=== PATIENT | female | born 1975 | race Caucasian/White ===

== ENCOUNTER 2016-08-06 17:07 | Emergency (ER) | payer OTHER ==
[~2016-08-06] VITALS: Ht 157.5 cm; Wt 69.2 kg
[2016-08-06] MEDS ORDERED: JANU50TA4 PO (17:26)
[2016-08-06] MEDS ORDERED: BASA100I SC (17:26)
[2016-08-06] MEDS ORDERED: VENL150C43 PO (17:26)
[2016-08-06] MEDS ORDERED: IBUP-1022 PO (18:08)
[2016-08-06] MEDS ORDERED: CYCL10TA PO (18:08)
[2016-08-06] MEDS ORDERED: KETOROLAC 60 MG/2 ML VIAL (J1885) IM ONE (18:15)
[2016-08-06 18:38] VITALS: BP 152/96
== END 2016-08-06 18:41 | disposition home or self-care (01) ==
LOC: M ED 17:07
DX: M54.12 Radiculopathy, cervical region (principal); E11.9 Type 2 diabetes mellitus without complications; Z79.899 Other long term (current) drug therapy

== ENCOUNTER 2017-10-20 13:52 | Emergency (ER) | payer OTHER ==
[2017-10-20 14:00] LABS: BEDSIDE GLUCOSE 313 MG/DL (70-105)
[2017-10-20 14:31] LABS: BASO % 0.4 % (0.0-1.0); EOS % 0.4 % (0.0-3.0); HEMATOCRIT 44.4 % (36.0-47.0); HEMOGLOBIN 14.9 g/dl (12.0-15.5); IMMATURE GRANULOCYTE % 0.7 % (0-3.0); LYMPH # 0.8 10^3/uL (1.5-4.5); LYMPH % 9.2 % (24.0-44.0); MEAN CORPUSCULAR HEMOGLOBIN 28.3 pg (27.0-33.0); MEAN CORPUSCULAR HGB CONC 33.6 g/dl (32.0-36.5); MEAN CORPUSCULAR VOLUME 84.3 fl (80.0-96.0); MONO # 0.7 10^3/uL (0.0-0.8); MONO % 7.5 % (0.0-5.0); NEUTROPHILS # 7.3 10^3/uL (1.8-7.7); NEUTROPHILS % 81.8 % (36.0-66.0); PLATELET COUNT, AUTOMATED 284 10^3/uL (150-450); RED BLOOD COUNT 5.27 10^6/uL (4.00-5.40); RED CELL DISTRIBUTION WIDTH 12.1 % (11.5-14.5); WHITE BLOOD COUNT 8.9 10^3/uL (4.0-10.0)
[2017-10-20] MEDS: LORazepam 2 MG/ML VIAL (J2060) IV (14:31)
[2017-10-20] MEDS: ONDANSETRON 4MG/2ML VIAL (J2405) IV (14:31)
[2017-10-20] MEDS: NS 1,000 ML IV (14:31)
[2017-10-20 14:46] LABS: CONTROL LINE HCG INT CTR LINE PRESENT; HCG, SERUM QUALITATIVE NEGATIVE (NEGATIVE)
[2017-10-20 15:11] LABS: ALBUMIN 3.9 GM/DL (3.2-5.2); ALBUMIN/GLOBULIN RATIO 0.95 (1.00-1.93); ALKALINE PHOSPHATASE 59 U/L (45-117); ALT/SGPT 19 U/L (12-78); AMYLASE 36 U/L (25-115); ANION GAP 8 MEQ/L (8-16); AST/SGOT 9 U/L (7-37); BILIRUBIN,DIRECT < 0.1 MG/DL (0.0-0.2); BILIRUBIN,TOTAL 0.4 MG/DL (0.2-1.0); BLOOD UREA NITROGEN 14 MG/DL (7-18); CALCIUM LEVEL 8.7 MG/DL (8.5-10.1); CARBON DIOXIDE LEVEL 23 MEQ/L (21-32); CHLORIDE LEVEL 107 MEQ/L (98-107); CK-MB VALUE MASS < 1.0 NG/ML (<3.6); CPK CREATINE PHOSPHOKINASE 106 U/L (26-192); CREATININE FOR GFR 0.72 MG/DL (0.55-1.30); GLOMERULAR FILTRATION RATE > 60.0 (>58); GLUCOSE, FASTING 304 MG/DL (70-100); LIPASE 122 U/L (73-393); MB/CK RELATIVE INDEX 0.94 (< OR =4); POTASSIUM SERUM 4.2 MEQ/L (3.5-5.1); SODIUM LEVEL 138 MEQ/L (136-145); TROPONIN I < 0.02 NG/ML (< 0.10)
[2017-10-20] MEDS: MECLIZINE 25 MG TABLET PO (16:15)
== END 2017-10-20 16:17 | disposition home or self-care (01) ==
LOC: M ED 13:52
DX: H81.10 Benign paroxysmal vertigo, unspecified ear (principal); E11.9 Type 2 diabetes mellitus without complications; Z79.4 Long term (current) use of insulin; Z88.8 Allergy status to other drugs, medicaments and biological substances
CPT/HCPCS: J2405

== ENCOUNTER → 2018-09-11 | Outpatient (REF) | payer OTHER ==
[~2018-09-11] MED LIST: BASA100I SC; CYCL10TA PO; IBUP-1022 PO; JANU50TA4 PO; MECL-86 PO; ONDA4TAB6 PO; VENL150C43 PO
[2018-09-11 16:44] LABS: APPEARANCE, URINE CLEAR (CLEAR); BACTERIA, URINE AUTO NEGATIVE (NEGATIVE); BILIRUBIN, URINE AUTO NEGATIVE (NEGATIVE); BLOOD, URINE BLOOD 2+ (NEGATIVE); COLOR, URINE YELLOW (YELLOW); GLUCOSE, URINE (UA) AUTO 3+ mg/dL (NEGATIVE); KETONE, URINE AUTO 1+ mg/dL (NEGATIVE); LEUKOCYTE ESTERASE, URINE AUTO TRACE (NEGATIVE); MUCUS, URINE SMALL (NEGATIVE); NITRITE, URINE AUTO NEGATIVE (NEGATIVE); PROTEIN, URINE AUTO NEGATIVE (NEGATIVE); RBC, URINE AUTO 24 /HPF (0-3); SPECIFIC GRAVITY URINE AUTO 1.033 (1.002-1.035); SQUAMOUS EPITHELIAL CELL UR AU 3 /HPF (0-6); UROBILINOGEN, URINE AUTO 0.2 mg/dL (0.0-2.0); WBC, URINE AUTO 25 /HPF (0-3)
[2018-09-11 17:08] LABS: ALBUMIN 3.8 GM/DL (3.2-5.2); ALT/SGPT 23 U/L (12-78); BILIRUBIN,TOTAL 0.4 MG/DL (0.2-1.0); BLOOD UREA NITROGEN 15 MG/DL (7-18); CALCIUM LEVEL 8.7 MG/DL (8.5-10.1); CARBON DIOXIDE LEVEL 27 MEQ/L (21-32); CHLORIDE LEVEL 104 MEQ/L (98-107); CHOLESTEROL LEVEL 277 MG/DL (<200); CHOLESTEROL RISK RATIO 8.935 (<5); CREATININE FOR GFR 0.71 MG/DL (0.55-1.30); GLOMERULAR FILTRATION RATE > 60.0 (>58); GLUCOSE, FASTING 274 MG/DL (70-100); HDL CHOLESTEROL 31 MG/DL (>40); NON-HDL-C 246 MG/DL; POTASSIUM SERUM 4.2 MEQ/L (3.5-5.1); SODIUM LEVEL 139 MEQ/L (136-145); TRIGLYCERIDES LEVEL 802 MG/DL (<150)
[2018-09-11 17:11] LABS: CREATININE, URINE 51.2 MG/DL; MALB URINE SIEMENS 42.5 MG/L
== END ==
LOC: M SFHCPLAZ 14:12
PROVIDERS: ATTEND Nurse Practitioner Family
DX: Z00.00 Encounter for general adult medical examination without abnormal findings (principal); E11.9 Type 2 diabetes mellitus without complications; Z13.220 Encounter for screening for lipoid disorders; F41.8 Other specified anxiety disorders

== ENCOUNTER → 2018-09-12 | Outpatient (CLI) | payer OTHER ==
--- NOTE | 2018-09-13 02:52 | REP ---
Clinical: Right knee pain. Technique: AP, lateral, bilateral oblique and sunrise views of the right knee. Findings: Lateral and sunrise views demonstrate osteophyte formation along the patellar margins with subtle posterior sclerosis and anterior fraying suggesting mild degenerative changes and patellar tendinopathy. Tibiofemoral joint demonstrates age-related changes. There is no evidence for acute fracture dislocation. No effusion. 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 Electronically Signed by Gonzalo Chinchilla MD 09/13/2018 02:44 A
== END ==
LOC: M RAD 14:40
PROVIDERS: ATTEND Nurse Practitioner Family
DX: M17.11 Unilateral primary osteoarthritis, right knee (principal); M25.561 Pain in right knee

== ENCOUNTER → 2019-06-19 | Outpatient (CLI) | payer OTHER ==
[~2019-06-19] MED LIST changes: +CYCL-707 PO; -CYCL10TA PO
== END ==
LOC: M LABSMTC 12:45
PROVIDERS: ATTEND Family Medicine
DX: Z11.59 Encounter for screening for other viral diseases (principal)
CPT/HCPCS: C8903; U0003

== ENCOUNTER → 2021-07-15 | Outpatient (CLI) | payer OTHER ==
[2021-07-15 13:28] LABS: BASO # 0.1 10^3/uL (0.0-0.2); BASO % 0.9 % (0.0-1.0); EOS # 0.1 10^3/uL (0.0-0.5); EOS % 0.7 % (0.0-3.0); HEMATOCRIT 48.5 % (36.0-47.0); LYMPH # 1.3 10^3/uL (1.5-5.0); LYMPH % 12.7 % (24.0-44.0); MEAN CORPUSCULAR HEMOGLOBIN 29.1 pg (27.0-33.0); MEAN CORPUSCULAR VOLUME 88.3 fl (80.0-96.0); MONO # 0.7 10^3/uL (0.0-0.8); NEUTROPHILS # 7.7 10^3/uL (1.5-8.5); NEUTROPHILS % 77.7 % (36.0-66.0); PLATELET COUNT, AUTOMATED 338 10^3/uL (150-450); RED BLOOD COUNT 5.49 10^6/uL (4.00-5.40); WHITE BLOOD COUNT 9.9 10^3/uL (4.0-10.0)
[2021-07-15 14:11] LABS: CREATININE, URINE 56.5 MG/DL; MALB URINE SIEMENS 68.3 MG/L; MAU/CREAT RATIO 120.8 MCG/MG (0.0-30.0)
[2021-07-15 14:20] LABS: ALBUMIN 3.7 GM/DL (3.2-5.2); ALT/SGPT 26 U/L (12-78); BILIRUBIN,TOTAL 0.5 MG/DL (0.2-1.0); BLOOD UREA NITROGEN 14 MG/DL (7-18); CALCIUM LEVEL 8.8 MG/DL (8.5-10.1); CARBON DIOXIDE LEVEL 20 MEQ/L (21-32); CHLORIDE LEVEL 104 MEQ/L (98-107); CHOLESTEROL LEVEL 293 MG/DL (<200); CHOLESTEROL RISK RATIO 8.878 (<5); CREATININE FOR GFR 0.87 MG/DL (0.55-1.30); FREE T4 0.91 NG/DL (0.76-1.46); GLOMERULAR FILTRATION RATE > 60.0 (>58); GLUCOSE, FASTING 258 MG/DL (70-100); HDL CHOLESTEROL 33 MG/DL (>40); NON-HDL-C 260 MG/DL; POTASSIUM SERUM 4.4 MEQ/L (3.5-5.1); SODIUM LEVEL 136 MEQ/L (136-145); THYROID STIMULATING HORMONE 0.921 uIU/ML (0.358-3.740); TOTAL 25(OH) VITAMIN D 15.2 NG/ML (30.0-100.0); TOTAL PROTEIN 8.2 GM/DL (6.4-8.2); TRIGLYCERIDES LEVEL 593 MG/DL (<150)
[2021-07-15 14:40] LABS: HEMOGLOBIN A1c 12.5 %
== END ==
LOC: M PLALAB 10:59
PROVIDERS: ATTEND Nurse Practitioner Family
DX: E11.9 Type 2 diabetes mellitus without complications (principal); E78.2 Mixed hyperlipidemia; I11.9 Hypertensive heart disease without heart failure

== ENCOUNTER 2021-08-09 13:50 | Inpatient (IN) | payer OTHER ==
[~2021-08-09] VITALS: Ht 157.5 cm; Wt 64.1 kg
[2021-08-09 15:07] LABS: HEMATOCRIT 40.4 % (36.0-47.0); HEMOGLOBIN 13.3 g/dl (12.0-15.5); MEAN CORPUSCULAR HEMOGLOBIN 29.4 pg (27.0-33.0); MEAN CORPUSCULAR HGB CONC 32.9 g/dl (32.0-36.5); MEAN CORPUSCULAR VOLUME 89.2 fl (80.0-96.0); PLATELET COUNT, AUTOMATED 414 10^3/uL (150-450); RED BLOOD COUNT 4.53 10^6/uL (4.00-5.40); WHITE BLOOD COUNT 14.8 10^3/uL (4.0-10.0)
[2021-08-09 15:27] LABS: HCG, SERUM QUALITATIVE NEGATIVE (NEGATIVE)
[2021-08-09 15:31] LABS: ERYTHROCYTE SEDIMENTATION RATE 77 mm/hr (0-20)
[2021-08-09 15:38] LABS: BLOOD UREA NITROGEN 13 MG/DL (7-18); CALCIUM LEVEL 9.1 MG/DL (8.5-10.1); CARBON DIOXIDE LEVEL 26 MEQ/L (21-32); CHLORIDE LEVEL 100 MEQ/L (98-107); CREATININE FOR GFR 0.75 MG/DL (0.55-1.30); GLOMERULAR FILTRATION RATE > 60.0 (>58); GLUCOSE, FASTING 266 MG/DL (70-100); SODIUM LEVEL 135 MEQ/L (136-145)
[2021-08-09] MEDS ORDERED: ONDANSETRON 4MG 2ML VIAL IV ONE (17:40)
[2021-08-09] MEDS ORDERED: VANCOMYCIN HCL 1,250 MG in NS 250 ML IV ONE (17:40)
[2021-08-09] MEDS ORDERED: MORPHINE 4 MG/ML 1ML VIAL/SYRINGE IV PRN (17:40)
[2021-08-09] MEDS ORDERED: ISOVUE-370 76% 100ML VIAL As Ordered ONE (17:50)
[2021-08-09] MEDS ORDERED: VANCOMYCIN HCL 750 MG, VIAL MATE ADAPTER 1 EACH in NS 250 ML IV ONE (18:00)
[2021-08-09] MEDS ORDERED: VANCOMYCIN HCL 500 MG in D5W MINI-BAG PLUS 100 ML IV ONE (18:00)
[2021-08-09 18:29] LABS: BASO # 0.1 10^3/uL (0.0-0.2); BASO % 0.5 % (0.0-1.0); EOS # 0.1 10^3/uL (0.0-0.5); EOS % 0.5 % (0.0-3.0); LYMPH # 0.5 10^3/uL (1.5-5.0); LYMPH % 3.7 % (24.0-44.0); MONO # 1.2 10^3/uL (0.0-0.8); MONO % 7.9 % (2.0-8.0); NEUTROPHILS # 12.6 10^3/uL (1.5-8.5); NEUTROPHILS % 86.3 % (36.0-66.0)
[2021-08-09 18:39] LABS: RSV AMPLIFICATION NEGATIVE (NEGATIVE)
[2021-08-09] MEDS ORDERED: FLUO40CA PO (18:43)
[2021-08-09] MEDS ORDERED: ATOR80TA59 PO (18:43)
[2021-08-09] MEDS ORDERED: OZEM2INJ SC (18:43)
[2021-08-09] MEDS ORDERED: BUSP5TA PO (18:43)
[2021-08-09] MEDS ORDERED: LISI10TA22 PO (18:43)
[2021-08-09] MEDS ORDERED: OXYC1TAB23 PO (18:43)
[2021-08-09] MEDS ORDERED: MOM 30ML SUSPENSION UDC PO PRN (19:20)
[2021-08-09] MEDS ORDERED: GLUCOSE 4GM CHEW TABLET PO PRN (19:30)
[2021-08-09] MEDS ORDERED: DEXTROSE 50% 50 ML SYRINGE IV PRN (19:30)
[2021-08-09] MEDS ORDERED: GLUCAGON INJ 1MG VIAL SC PRN (19:30)
[2021-08-09] MEDS ORDERED: HOME MED LIST COMPLETE! XX SCH (19:40)
[2021-08-09] MEDS: busPIRone 5 MG TAB PO SCH ×2 (21:00→23:38)
[2021-08-09] MEDS: ATORVASTATIN 20 MG TAB PO SCH ×2 (21:00→23:40)
[2021-08-09] MEDS: HEPARIN SOD (PORCINE) 5000UNITS/ML 1ML VIAL/SYRINGE SC SCH ×2 (22:00→23:38)
[2021-08-09] MEDS: MORPHINE 2 MG/ML 1ML VIAL IV PRN (22:52)
[2021-08-09] MEDS ORDERED: CALCIUM CARBONATE 500 MG CHEW U/D PO PRN (23:05)
[2021-08-09] MEDS: NS 1,000 ML IV SCH (23:40)
[2021-08-09] MEDS: PIPERACILLIN/TAZOBACTAM SOD 3.375 GM in D5W MINI-BAG PLUS 50 ML IV SCH (23:41)
[2021-08-10] VITALS (9 sets, daily range): BP systolic 106–134; BP diastolic 70–88
[2021-08-10] MEDS ORDERED: GI COCKTAIL 50ML BTL(HYOSCYAMINE/MAALOX/LIDOCAINE VISCOUS)(1:3:1) PO ONE
[2021-08-10] MEDS: PIPERACILLIN/TAZOBACTAM SOD 3.375 GM in D5W MINI-BAG PLUS 50 ML IV SCH ×4 (02:02→21:06)
[2021-08-10] MEDS: MORPHINE 2 MG/ML 1ML VIAL IV PRN (04:17)
[2021-08-10] MEDS: NS 1,000 ML IV SCH ×2 (05:35→13:03)
[2021-08-10] MEDS: HEPARIN SOD (PORCINE) 5000UNITS/ML 1ML VIAL/SYRINGE SC SCH ×3 (06:13→23:26)
[2021-08-10] MEDS: VANCOMYCIN HCL 1,000 MG, VIAL MATE ADAPTER 1 EACH in NS 250 ML IV SCH ×2 (06:13→18:10)
[2021-08-10 06:14] LABS: HEMOGLOBIN 11.5 g/dl (12.0-15.5); MEAN CORPUSCULAR HEMOGLOBIN 29.2 pg (27.0-33.0); MEAN CORPUSCULAR HGB CONC 32.9 g/dl (32.0-36.5); MEAN CORPUSCULAR VOLUME 88.8 fl (80.0-96.0); PLATELET COUNT, AUTOMATED 349 10^3/uL (150-450); RED BLOOD COUNT 3.94 10^6/uL (4.00-5.40); WHITE BLOOD COUNT 13.1 10^3/uL (4.0-10.0)
[2021-08-10 06:36] LABS: ALBUMIN 1.9 GM/DL (3.2-5.2); ALT/SGPT 19 U/L (12-78); BILIRUBIN,TOTAL 0.6 MG/DL (0.2-1.0); BLOOD UREA NITROGEN 9 MG/DL (7-18); CALCIUM LEVEL 8.5 MG/DL (8.5-10.1); CARBON DIOXIDE LEVEL 23 MEQ/L (21-32); CHLORIDE LEVEL 103 MEQ/L (98-107); CREATININE FOR GFR 0.62 MG/DL (0.55-1.30); GLOMERULAR FILTRATION RATE > 60.0 (>58); GLUCOSE, FASTING 294 MG/DL (70-100); SODIUM LEVEL 136 MEQ/L (136-145); TOTAL PROTEIN 5.5 GM/DL (6.4-8.2)
[2021-08-10] MEDS: INSULIN LISPRO (NovoLOG) PER UNIT SC SCH ×4 (07:43→18:10)
[2021-08-10] MEDS ORDERED: BUPIVACAINE LIPOSOME/PF 1.3% 20ML VIAL (13.3MG/ML)(EXPAREL) As Ordered ONE (08:27)
[2021-08-10] MEDS ORDERED: BUPIVACAINE HCL 0.25% 10ML VIAL As Ordered ONE (08:27)
[2021-08-10] MEDS: FLUoxetine 20MG CAP PO SCH ×2 (09:00→13:02)
[2021-08-10] MEDS: LEVEMIR (INSULIN DETEMIR) 1 UNITS/0.01ML SC SCH ×2 (09:00→13:02)
[2021-08-10] MEDS: busPIRone 5 MG TAB PO SCH ×2 (09:00→21:07)
[2021-08-10] MEDS ORDERED: propofoL 500 MG/50 ML VIAL As Ordered ONE (09:24)
[2021-08-10] MEDS ORDERED: dexameTHASONE 4 MG/ML 1ML VIAL (J1100 PER 1MG) As Ordered ONE (09:24)
[2021-08-10] MEDS ORDERED: MIDAZOLAM INJ 2MG/2ML VIAL (J2250 PER 1MG) As Ordered ONE (09:24)
[2021-08-10] MEDS ORDERED: fentaNYL 100 MCG/2 ML INJECTION As Ordered ONE (09:24)
[2021-08-10] MEDS ORDERED: ONDANSETRON 4MG 2ML VIAL As Ordered ONE (09:25)
[2021-08-10] MEDS ORDERED: LR 1,000 ML IV SCH (10:55)
[2021-08-10] MEDS ORDERED: oxyCODONE 5MG TAB PO PRN (10:55)
[2021-08-10] MEDS ORDERED: fentaNYL 100 MCG/2 ML INJECTION IV PRN (10:55)
[2021-08-10] MEDS ORDERED: ONDANSETRON 4MG 2ML VIAL IV PRN (10:55)
[2021-08-10] MEDS ORDERED: MORPHINE 2 MG/ML 1ML VIAL IV PRN (10:55)
[2021-08-10] MEDS ORDERED: INSULIN LISPRO (NovoLOG) PER UNIT SC PRN (11:00)
[2021-08-10] MEDS: PERCOCET 5MG/325MG TAB PO PRN ×2 (15:29→23:41)
[2021-08-10] MEDS: ATORVASTATIN 20 MG TAB PO SCH (21:07)
[2021-08-11] MEDS: INSULIN LISPRO (NovoLOG) PER UNIT SC SCH ×5 (00:24→21:00)
[2021-08-11 01:15] VITALS: BP 107/73
[2021-08-11] MEDS: NS 1,000 ML IV SCH ×3 (03:24→19:53)
[2021-08-11] MEDS: PIPERACILLIN/TAZOBACTAM SOD 3.375 GM in D5W MINI-BAG PLUS 50 ML IV SCH ×4 (03:24→19:51)
[2021-08-11 05:13] VITALS: BP 103/70
[2021-08-11 05:21] LABS: HEMATOCRIT 33.9 % (36.0-47.0); HEMOGLOBIN 10.9 g/dl (12.0-15.5); MEAN CORPUSCULAR HGB CONC 32.2 g/dl (32.0-36.5); MEAN CORPUSCULAR VOLUME 90.2 fl (80.0-96.0); PLATELET COUNT, AUTOMATED 313 10^3/uL (150-450); RED BLOOD COUNT 3.76 10^6/uL (4.00-5.40); WHITE BLOOD COUNT 13.3 10^3/uL (4.0-10.0)
[2021-08-11 06:06] LABS: ALBUMIN 1.6 GM/DL (3.2-5.2); ALT/SGPT 27 U/L (12-78); BILIRUBIN,TOTAL 0.5 MG/DL (0.2-1.0); BLOOD UREA NITROGEN 16 MG/DL (7-18); CALCIUM LEVEL 8.3 MG/DL (8.5-10.1); CARBON DIOXIDE LEVEL 25 MEQ/L (21-32); CHLORIDE LEVEL 108 MEQ/L (98-107); CREATININE FOR GFR 0.53 MG/DL (0.55-1.30); GLOMERULAR FILTRATION RATE > 60.0 (>58); GLUCOSE, FASTING 246 MG/DL (70-100); POTASSIUM SERUM 4.3 MEQ/L (3.5-5.1); SODIUM LEVEL 139 MEQ/L (136-145); TOTAL PROTEIN 4.9 GM/DL (6.4-8.2)
[2021-08-11] MEDS: VANCOMYCIN HCL 1,000 MG, VIAL MATE ADAPTER 1 EACH in NS 250 ML IV SCH ×3 (06:22→22:06)
[2021-08-11] MEDS: HEPARIN SOD (PORCINE) 5000UNITS/ML 1ML VIAL/SYRINGE SC SCH ×3 (06:22→22:06)
[2021-08-11] MEDS: LEVEMIR (INSULIN DETEMIR) 1 UNITS/0.01ML SC SCH (08:51)
[2021-08-11] MEDS: PERCOCET 5MG/325MG TAB PO PRN ×3 (08:52→20:18)
[2021-08-11 08:53] VITALS: BP 125/82
[2021-08-11] MEDS: busPIRone 5 MG TAB PO SCH ×2 (08:53→19:51)
[2021-08-11] MEDS: FLUoxetine 20MG CAP PO SCH (08:53)
[2021-08-11] MEDS ORDERED: LEVEMIR (INSULIN DETEMIR) 1 UNITS/0.01ML SC ONE (09:20)
[2021-08-11 14:00] VITALS: BP 102/66
[2021-08-11] MEDS: ATORVASTATIN 20 MG TAB PO SCH (19:50)
[2021-08-11 22:00] VITALS: BP 103/65
[2021-08-12] MEDS: PERCOCET 5MG/325MG TAB PO PRN ×2 (02:40→09:16)
[2021-08-12] MEDS: PIPERACILLIN/TAZOBACTAM SOD 3.375 GM in D5W MINI-BAG PLUS 50 ML IV SCH ×4 (02:42→20:46)
[2021-08-12 05:22] LABS: HEMATOCRIT 30.2 % (36.0-47.0); HEMOGLOBIN 9.9 g/dl (12.0-15.5); MEAN CORPUSCULAR HEMOGLOBIN 29.1 pg (27.0-33.0); MEAN CORPUSCULAR HGB CONC 32.8 g/dl (32.0-36.5); MEAN CORPUSCULAR VOLUME 88.8 fl (80.0-96.0); PLATELET COUNT, AUTOMATED 340 10^3/uL (150-450); WHITE BLOOD COUNT 12.4 10^3/uL (4.0-10.0)
[2021-08-12] MEDS: VANCOMYCIN HCL 1,000 MG, VIAL MATE ADAPTER 1 EACH in NS 250 ML IV SCH ×3 (05:54→22:02)
[2021-08-12] MEDS: HEPARIN SOD (PORCINE) 5000UNITS/ML 1ML VIAL/SYRINGE SC SCH ×3 (05:54→20:42)
[2021-08-12 05:56] LABS: ALBUMIN 1.5 GM/DL (3.2-5.2); ALT/SGPT 23 U/L (12-78); BILIRUBIN,TOTAL 0.3 MG/DL (0.2-1.0); BLOOD UREA NITROGEN 17 MG/DL (7-18); CALCIUM LEVEL 7.3 MG/DL (8.5-10.1); CARBON DIOXIDE LEVEL 23 MEQ/L (21-32); CHLORIDE LEVEL 108 MEQ/L (98-107); CREATININE FOR GFR 0.48 MG/DL (0.55-1.30); GLOMERULAR FILTRATION RATE > 60.0 (>58); GLUCOSE, FASTING 279 MG/DL (70-100); POTASSIUM SERUM 3.7 MEQ/L (3.5-5.1); SODIUM LEVEL 139 MEQ/L (136-145); TOTAL PROTEIN 4.8 GM/DL (6.4-8.2)
[2021-08-12 06:00] VITALS: BP 100/61
[2021-08-12] MEDS: NS 1,000 ML IV SCH ×2 (07:35→17:30)
[2021-08-12] MEDS ORDERED: LEVEMIR (INSULIN DETEMIR) 1 UNITS/0.01ML SC SCH (09:00)
[2021-08-12] MEDS: FLUoxetine 20MG CAP PO SCH (09:15)
[2021-08-12] MEDS: busPIRone 5 MG TAB PO SCH ×2 (09:15→20:42)
[2021-08-12] MEDS: INSULIN LISPRO (NovoLOG) PER UNIT SC SCH ×4 (09:16→21:00)
[2021-08-12] MEDS ORDERED: KETOROLAC 30 MG/ML 1ML VIAL IV ONE (09:20)
[2021-08-12] MEDS ORDERED: PERCOCET 5MG/325MG TAB PO ONE (09:20)
[2021-08-12] MEDS: LEVEMIR (INSULIN DETEMIR) 1 UNITS/0.01ML SC SCH (09:25)
[2021-08-12 14:00] VITALS: BP 104/58
[2021-08-12] MEDS: KETOROLAC 30 MG/ML 1ML VIAL IV SCH ×2 (17:29→22:04)
[2021-08-12 20:00] VITALS: BP 105/57
[2021-08-12] MEDS: ATORVASTATIN 20 MG TAB PO SCH (20:42)
[2021-08-12 22:00] VITALS: BP 105/57
[2021-08-13] MEDS: PIPERACILLIN/TAZOBACTAM SOD 3.375 GM in D5W MINI-BAG PLUS 50 ML IV SCH ×4 (02:07→21:30)
[2021-08-13] MEDS: KETOROLAC 30 MG/ML 1ML VIAL IV SCH ×4 (04:18→22:52)
[2021-08-13] MEDS: HEPARIN SOD (PORCINE) 5000UNITS/ML 1ML VIAL/SYRINGE SC SCH ×3 (05:18→21:30)
[2021-08-13] MEDS: VANCOMYCIN HCL 1,000 MG, VIAL MATE ADAPTER 1 EACH in NS 250 ML IV SCH (05:18)
[2021-08-13 06:00] VITALS: BP 118/75
[2021-08-13] MEDS: NS 1,000 ML IV SCH ×2 (06:16→15:35)
[2021-08-13] MEDS: busPIRone 5 MG TAB PO SCH ×2 (09:11→21:30)
[2021-08-13] MEDS: LEVEMIR (INSULIN DETEMIR) 1 UNITS/0.01ML SC SCH (09:11)
[2021-08-13] MEDS: FLUoxetine 20MG CAP PO SCH (09:11)
[2021-08-13] MEDS: INSULIN LISPRO (NovoLOG) PER UNIT SC SCH ×4 (09:12→21:00)
[2021-08-13] MEDS ORDERED: LEVEMIR (INSULIN DETEMIR) 1 UNITS/0.01ML SC ONE (13:00)
[2021-08-13 13:17] LABS: BASO # 0.1 10^3/uL (0.0-0.2); BASO % 0.5 % (0.0-1.0); EOS # 0.1 10^3/uL (0.0-0.5); EOS % 1.1 % (0.0-3.0); HEMATOCRIT 32.2 % (36.0-47.0); HEMOGLOBIN 10.4 g/dl (12.0-15.5); LYMPH # 0.5 10^3/uL (1.5-5.0); LYMPH % 4.7 % (24.0-44.0); MEAN CORPUSCULAR HEMOGLOBIN 28.5 pg (27.0-33.0); MEAN CORPUSCULAR HGB CONC 32.3 g/dl (32.0-36.5); MEAN CORPUSCULAR VOLUME 88.2 fl (80.0-96.0); MONO # 0.7 10^3/uL (0.0-0.8); MONO % 6.2 % (2.0-8.0); NEUTROPHILS # 8.8 10^3/uL (1.5-8.5); NEUTROPHILS % 83.6 % (36.0-66.0); PLATELET COUNT, AUTOMATED 367 10^3/uL (150-450); RED BLOOD COUNT 3.65 10^6/uL (4.00-5.40); WHITE BLOOD COUNT 10.5 10^3/uL (4.0-10.0)
[2021-08-13 14:00] VITALS: BP 130/70
[2021-08-13] MEDS: VANCOMYCIN HCL 750 MG, VIAL MATE ADAPTER 1 EACH in NS 250 ML IV SCH ×2 (14:06→22:50)
[2021-08-13] MEDS ORDERED: LACTOBACILLUS ACIDOPHILUS CAP (BACID) PO SCH (21:00)
[2021-08-13] MEDS: ATORVASTATIN 20 MG TAB PO SCH (21:30)
[2021-08-13 22:00] VITALS: BP 141/78
[2021-08-14] MEDS: PIPERACILLIN/TAZOBACTAM SOD 3.375 GM in D5W MINI-BAG PLUS 50 ML IV SCH ×2 (03:00→08:21)
[2021-08-14] MEDS: NS 1,000 ML IV SCH ×2 (05:59→09:11)
[2021-08-14] MEDS: HEPARIN SOD (PORCINE) 5000UNITS/ML 1ML VIAL/SYRINGE SC SCH ×2 (05:59→12:13)
[2021-08-14 06:00] VITALS: BP 139/77
[2021-08-14] MEDS: VANCOMYCIN HCL 750 MG, VIAL MATE ADAPTER 1 EACH in NS 250 ML IV SCH (06:00)
[2021-08-14 06:50] LABS: HEMATOCRIT 29.6 % (36.0-47.0); HEMOGLOBIN 9.6 g/dl (12.0-15.5); MEAN CORPUSCULAR HGB CONC 32.4 g/dl (32.0-36.5); MEAN CORPUSCULAR VOLUME 89.4 fl (80.0-96.0); PLATELET COUNT, AUTOMATED 347 10^3/uL (150-450); RED BLOOD COUNT 3.31 10^6/uL (4.00-5.40); WHITE BLOOD COUNT 10.7 10^3/uL (4.0-10.0)
[2021-08-14 07:14] LABS: BLOOD UREA NITROGEN 11 MG/DL (7-18); CALCIUM LEVEL 7.9 MG/DL (8.5-10.1); CARBON DIOXIDE LEVEL 27 MEQ/L (21-32); CHLORIDE LEVEL 110 MEQ/L (98-107); CREATININE FOR GFR 0.87 MG/DL (0.55-1.30); GLOMERULAR FILTRATION RATE > 60.0 (>58); GLUCOSE, FASTING 185 MG/DL (70-100); POTASSIUM SERUM 3.4 MEQ/L (3.5-5.1); SODIUM LEVEL 143 MEQ/L (136-145)
[2021-08-14 07:38] LABS: EOSINOPHILS 1 % (0-3); LYMPHOCYTES 6 % (16-44); MONOCYTES 8 % (0-5); NEUTROPHILS 83 % (28-66); PLATELET ESTIMATE NORMAL (NORMAL)
[2021-08-14] MEDS ORDERED: LACTOBACILLUS ACIDOPHILUS CAP (BACID) PO SCH (08:00)
[2021-08-14] MEDS: KETOROLAC 30 MG/ML 1ML VIAL IV SCH ×2 (08:18→12:10)
[2021-08-14] MEDS: INSULIN LISPRO (NovoLOG) PER UNIT SC SCH ×2 (08:20→12:12)
[2021-08-14] MEDS: FLUoxetine 20MG CAP PO SCH (08:21)
[2021-08-14] MEDS: busPIRone 5 MG TAB PO SCH (08:21)
[2021-08-14] MEDS ORDERED: LEVEMIR (INSULIN DETEMIR) 1 UNITS/0.01ML SC SCH (09:00)
[2021-08-14] MEDS ORDERED: CLIN150C17 PO ×2 (13:15→13:16)
[2021-08-14] MEDS ORDERED: IBUP-1114 PO (13:15)
[2021-08-25] MEDS ORDERED: LEVO1TAB40 PO (15:49)
== END 2021-08-14 13:57 | disposition home or self-care (01) | DRG 710 ==
LOC: M ED 13:50 → M ED INP 19:20 → ENRESERVDT 20:37 → ENRESERVTM 20:37 → M MSPAV 22:30
PROVIDERS: ADMIT Family Medicine; ATTEND Internal Medicine
PROC: 0D9P0ZZ Drainage of Rectum, Open Approach (ICD-10-PCS; principal; 2021-08-10 08:30)
DX: A41.9 Sepsis, unspecified organism (principal); I10 Essential (primary) hypertension; E11.9 Type 2 diabetes mellitus without complications; F32.A Depression, unspecified; L02.31 Cutaneous abscess of buttock; N76.89 Other specified inflammation of vagina and vulva; K60.3 Anal fistula; F41.9 Anxiety disorder, unspecified; Z91.11 Patient's noncompliance with dietary regimen; Z79.4 Long term (current) use of insulin; Z79.899 Other long term (current) drug therapy

== ENCOUNTER 2021-08-19 14:41 | Inpatient (IN) | payer OTHER ==
[~2021-08-19] VITALS: Ht 157.5 cm; Wt 64.2 kg
[~2021-08-19 14:41] MED LIST changes: +ATOR80TA59 PO; +BUSP5TA PO; +CLIN150C17 PO; +FLUO40CA PO; +IBUP-1114 PO; +LISI10TA22 PO; +OXYC1TAB23 PO; +OZEM2INJ SC
[2021-08-19] MEDS ORDERED: ONDANSETRON 4MG 2ML VIAL IV PRN (14:45)
[2021-08-19] MEDS ORDERED: VANCOMYCIN HCL 1,000 MG, VIAL MATE ADAPTER 1 EACH in NS 250 ML IV SCH (14:45)
[2021-08-19 15:05] VITALS: BP 138/82
[2021-08-19] MEDS ORDERED: UNRESOLVED CLARIFICATION ENTRY XX STA (15:29)
[2021-08-19 16:00] VITALS: BP 137/84
[2021-08-19 16:12] LABS: BASO # 0.1 10^3/uL (0.0-0.2); BASO % 0.4 % (0.0-1.0); EOS # 0.2 10^3/uL (0.0-0.5); EOS % 1.3 % (0.0-3.0); HEMATOCRIT 33.2 % (36.0-47.0); HEMOGLOBIN 11.1 g/dl (12.0-15.5); LYMPH # 0.9 10^3/uL (1.5-5.0); LYMPH % 5.6 % (24.0-44.0); MEAN CORPUSCULAR HEMOGLOBIN 29.4 pg (27.0-33.0); MEAN CORPUSCULAR HGB CONC 33.4 g/dl (32.0-36.5); MEAN CORPUSCULAR VOLUME 88.1 fl (80.0-96.0); MONO # 1.3 10^3/uL (0.0-0.8); MONO % 7.8 % (2.0-8.0); NEUTROPHILS # 13.5 10^3/uL (1.5-8.5); NEUTROPHILS % 83.3 % (36.0-66.0); PLATELET COUNT, AUTOMATED 551 10^3/uL (150-450); RED BLOOD COUNT 3.77 10^6/uL (4.00-5.40); WHITE BLOOD COUNT 16.2 10^3/uL (4.0-10.0)
[2021-08-19] MEDS ORDERED: CLIN150C17 PO (16:23)
[2021-08-19] MEDS ORDERED: IBUP1TAB5 PO (16:23)
[2021-08-19] MEDS ORDERED: BASA100I SC (16:23)
[2021-08-19] MEDS ORDERED: BACITAB PO (16:23)
[2021-08-19] MEDS ORDERED: OMEP-173 PO (16:23)
[2021-08-19] MEDS ORDERED: HOME MED LIST COMPLETE! XX SCH (16:25)
[2021-08-19 16:31] LABS: ALBUMIN 2.5 GM/DL (3.2-5.2); ALT/SGPT 17 U/L (12-78); BILIRUBIN,TOTAL 0.2 MG/DL (0.2-1.0); BLOOD UREA NITROGEN 20 MG/DL (7-18); CALCIUM LEVEL 9.1 MG/DL (8.5-10.1); CARBON DIOXIDE LEVEL 28 MEQ/L (21-32); CHLORIDE LEVEL 102 MEQ/L (98-107); CREATININE FOR GFR 1.03 MG/DL (0.55-1.30); GLOMERULAR FILTRATION RATE > 60.0 (>58); GLUCOSE, FASTING 234 MG/DL (70-100); POTASSIUM SERUM 3.6 MEQ/L (3.5-5.1); SODIUM LEVEL 138 MEQ/L (136-145); TOTAL PROTEIN 7.1 GM/DL (6.4-8.2)
[2021-08-19] MEDS: INSULIN LISPRO (NovoLOG) PER UNIT SC SCH ×2 (17:31→19:52)
[2021-08-19 18:00] VITALS: BP 133/85
[2021-08-19] MEDS ORDERED: VANCOMYCIN HCL 750 MG, VIAL MATE ADAPTER 1 EACH in D5W 250 ML IV ONE (19:00)
[2021-08-19] MEDS ORDERED: VANCOMYCIN HCL 500 MG in D5W MINI-BAG PLUS 100 ML IV ONE (20:00)
[2021-08-19 22:00] VITALS: BP 122/71
[2021-08-19] MEDS: oxyCODONE 5MG TAB PO PRN (22:12)
[2021-08-20] VITALS (8 sets, daily range): BP systolic 107–140; BP diastolic 53–80
[2021-08-20] MEDS: oxyCODONE 5MG TAB PO PRN (05:14)
[2021-08-20] MEDS ORDERED: VANCOMYCIN HCL 750 MG, VIAL MATE ADAPTER 1 EACH in D5W 250 ML IV SCH ×2 (07:00→21:00)
[2021-08-20 08:33] LABS: BLOOD UREA NITROGEN 16 MG/DL (7-18); CALCIUM LEVEL 8.7 MG/DL (8.5-10.1); CARBON DIOXIDE LEVEL 26 MEQ/L (21-32); CHLORIDE LEVEL 104 MEQ/L (98-107); GLOMERULAR FILTRATION RATE > 60.0 (>58); GLUCOSE, FASTING 307 MG/DL (70-100); POTASSIUM SERUM 4.4 MEQ/L (3.5-5.1); SODIUM LEVEL 137 MEQ/L (136-145)
[2021-08-20] MEDS: INSULIN LISPRO (NovoLOG) PER UNIT SC SCH ×4 (08:50→21:00)
[2021-08-20] MEDS: ATORVASTATIN 20 MG TAB PO SCH (08:51)
[2021-08-20] MEDS: busPIRone 5 MG TAB PO SCH (08:51)
[2021-08-20] MEDS: FLUoxetine 20MG CAP PO SCH (08:52)
[2021-08-20] MEDS ORDERED: propofoL 200 MG/20 ML VIAL As Ordered ONE ×3 (17:39→20:09)
[2021-08-20] MEDS ORDERED: MIDAZOLAM INJ 2MG/2ML VIAL (J2250 PER 1MG) As Ordered ONE ×2 (17:39→18:35)
[2021-08-20] MEDS ORDERED: fentaNYL 100 MCG/2 ML INJECTION As Ordered ONE (17:39)
[2021-08-20] MEDS ORDERED: LIDOCAINE 2% INJ 100 MG/5 ML SYRINGE As Ordered ONE (17:40)
[2021-08-20] MEDS ORDERED: BUPIVACAINE HCL 0.5% 30ML VIAL As Ordered ONE (17:40)
[2021-08-20] MEDS ORDERED: VANCOMYCIN 1000MG/20ML VIAL As Ordered ONE (18:07)
[2021-08-20] MEDS ORDERED: LR 1,000 ML IV SCH (19:55)
[2021-08-20] MEDS ORDERED: oxyCODONE 5MG TAB PO PRN (19:55)
[2021-08-20] MEDS ORDERED: ONDANSETRON 4MG 2ML VIAL IV PRN (19:55)
[2021-08-20] MEDS ORDERED: fentaNYL 100 MCG/2 ML INJECTION IV PRN (19:55)
[2021-08-20] MEDS ORDERED: ONDANSETRON 4MG 2ML VIAL As Ordered ONE (20:09)
[2021-08-20] MEDS: LR 1,000 ML IV SCH (21:06)
[2021-08-21] VITALS (9 sets, daily range): BP systolic 103–130; BP diastolic 54–77
[2021-08-21] MEDS: oxyCODONE 5MG TAB PO PRN (00:43)
[2021-08-21] MEDS: MORPHINE 2 MG/ML 1ML VIAL IV PRN ×3 (04:43→21:50)
[2021-08-21 08:27] LABS: BASO # 0.1 10^3/uL (0.0-0.2); BASO % 0.4 % (0.0-1.0); EOS # 0.2 10^3/uL (0.0-0.5); EOS % 1.8 % (0.0-3.0); HEMATOCRIT 29.8 % (36.0-47.0); HEMOGLOBIN 9.8 g/dl (12.0-15.5); LYMPH # 1.1 10^3/uL (1.5-5.0); LYMPH % 9.6 % (24.0-44.0); MEAN CORPUSCULAR HEMOGLOBIN 29.1 pg (27.0-33.0); MEAN CORPUSCULAR HGB CONC 32.9 g/dl (32.0-36.5); MEAN CORPUSCULAR VOLUME 88.4 fl (80.0-96.0); MONO # 1.2 10^3/uL (0.0-0.8); MONO % 10.6 % (2.0-8.0); NEUTROPHILS # 8.6 10^3/uL (1.5-8.5); NEUTROPHILS % 76.1 % (36.0-66.0); PLATELET COUNT, AUTOMATED 509 10^3/uL (150-450); RED BLOOD COUNT 3.37 10^6/uL (4.00-5.40); WHITE BLOOD COUNT 11.3 10^3/uL (4.0-10.0)
[2021-08-21] MEDS: INSULIN LISPRO (NovoLOG) PER UNIT SC SCH ×4 (08:32→21:00)
[2021-08-21] MEDS: busPIRone 5 MG TAB PO SCH (08:32)
[2021-08-21] MEDS: ATORVASTATIN 20 MG TAB PO SCH (08:33)
[2021-08-21] MEDS: FLUoxetine 20MG CAP PO SCH (08:33)
[2021-08-21 08:57] LABS: ALBUMIN 2.2 GM/DL (3.2-5.2); ALT/SGPT 10 U/L (12-78); BILIRUBIN,TOTAL 0.4 MG/DL (0.2-1.0); BLOOD UREA NITROGEN 13 MG/DL (7-18); CALCIUM LEVEL 8.7 MG/DL (8.5-10.1); CARBON DIOXIDE LEVEL 27 MEQ/L (21-32); CHLORIDE LEVEL 104 MEQ/L (98-107); CREATININE FOR GFR 0.89 MG/DL (0.55-1.30); GLOMERULAR FILTRATION RATE > 60.0 (>58); GLUCOSE, FASTING 225 MG/DL (70-100); POTASSIUM SERUM 4.4 MEQ/L (3.5-5.1); SODIUM LEVEL 138 MEQ/L (136-145); TOTAL PROTEIN 5.8 GM/DL (6.4-8.2)
[2021-08-21] MEDS: LR 1,000 ML IV SCH (10:48)
[2021-08-21] MEDS ORDERED: VANCOMYCIN HCL 500 MG in D5W MINI-BAG PLUS 100 ML IV SCH (13:00)
[2021-08-21] MEDS: VANCOMYCIN HCL 750 MG, VIAL MATE ADAPTER 1 EACH in D5W 250 ML IV SCH (13:14)
[2021-08-22] VITALS (7 sets, daily range): BP systolic 118–140; BP diastolic 62–80
[2021-08-22] MEDS: LR 1,000 ML IV SCH ×3 (03:05→21:44)
[2021-08-22 08:27] LABS: BASO # 0.1 10^3/uL (0.0-0.2); BASO % 0.8 % (0.0-1.0); EOS # 0.2 10^3/uL (0.0-0.5); EOS % 3.1 % (0.0-3.0); HEMATOCRIT 29.6 % (36.0-47.0); HEMOGLOBIN 9.5 g/dl (12.0-15.5); MEAN CORPUSCULAR HEMOGLOBIN 28.3 pg (27.0-33.0); MEAN CORPUSCULAR HGB CONC 32.1 g/dl (32.0-36.5); MEAN CORPUSCULAR VOLUME 88.1 fl (80.0-96.0); MONO # 0.8 10^3/uL (0.0-0.8); MONO % 10.5 % (2.0-8.0); NEUTROPHILS # 5.3 10^3/uL (1.5-8.5); PLATELET COUNT, AUTOMATED 477 10^3/uL (150-450); RED BLOOD COUNT 3.36 10^6/uL (4.00-5.40); WHITE BLOOD COUNT 7.5 10^3/uL (4.0-10.0)
[2021-08-22] MEDS: INSULIN LISPRO (NovoLOG) PER UNIT SC SCH ×4 (08:50→21:00)
[2021-08-22] MEDS: FLUoxetine 20MG CAP PO SCH (08:53)
[2021-08-22] MEDS: ATORVASTATIN 20 MG TAB PO SCH (08:54)
[2021-08-22] MEDS: busPIRone 5 MG TAB PO SCH (08:55)
[2021-08-22] MEDS: MORPHINE 2 MG/ML 1ML VIAL IV PRN ×2 (10:39→20:41)
[2021-08-22] MEDS: VANCOMYCIN HCL 750 MG, VIAL MATE ADAPTER 1 EACH in D5W 250 ML IV SCH (15:35)
[2021-08-23 02:00] VITALS: BP 119/68
[2021-08-23] MEDS ORDERED: VANCOMYCIN HCL 500 MG in D5W MINI-BAG PLUS 100 ML IV SCH (03:00)
[2021-08-23 06:00] VITALS: BP 128/72
[2021-08-23 07:42] LABS: BLOOD UREA NITROGEN 14 MG/DL (7-18); CALCIUM LEVEL 8.7 MG/DL (8.5-10.1); CARBON DIOXIDE LEVEL 32 MEQ/L (21-32); CHLORIDE LEVEL 103 MEQ/L (98-107); CREATININE FOR GFR 0.88 MG/DL (0.55-1.30); GLOMERULAR FILTRATION RATE > 60.0 (>58); GLUCOSE, FASTING 275 MG/DL (70-100); POTASSIUM SERUM 4.2 MEQ/L (3.5-5.1); SODIUM LEVEL 138 MEQ/L (136-145)
[2021-08-23] MEDS: INSULIN LISPRO (NovoLOG) PER UNIT SC SCH ×4 (08:36→21:00)
[2021-08-23] MEDS: MORPHINE 2 MG/ML 1ML VIAL IV PRN ×3 (08:37→21:44)
[2021-08-23] MEDS: FLUoxetine 20MG CAP PO SCH (08:37)
[2021-08-23] MEDS: ATORVASTATIN 20 MG TAB PO SCH (08:37)
[2021-08-23] MEDS: busPIRone 5 MG TAB PO SCH (08:38)
[2021-08-23 10:00] VITALS: BP 130/74
[2021-08-23] MEDS: LevoFLOXacin 750 MG TABLET PO SCH (10:16)
[2021-08-23 14:00] VITALS: BP 128/73
[2021-08-23 18:00] VITALS: BP 139/77
[2021-08-23] MEDS: ACETAMINOPHEN TAB 650MG DOSE (2X325MG) PO PRN (20:45)
[2021-08-23 22:00] VITALS: BP 136/76
[2021-08-24] MEDS: LevoFLOXacin 750 MG TABLET PO SCH (05:44)
[2021-08-24] MEDS: ACETAMINOPHEN TAB 650MG DOSE (2X325MG) PO PRN (05:44)
[2021-08-24 06:00] VITALS: BP 134/76
[2021-08-24 07:30] VITALS: BP 137/76
[2021-08-24] MEDS: busPIRone 5 MG TAB PO SCH (08:10)
[2021-08-24] MEDS: FLUoxetine 20MG CAP PO SCH (08:11)
[2021-08-24] MEDS: ATORVASTATIN 20 MG TAB PO SCH (08:14)
[2021-08-24] MEDS: INSULIN LISPRO (NovoLOG) PER UNIT SC SCH ×4 (08:23→21:00)
[2021-08-24] MEDS: MORPHINE 2 MG/ML 1ML VIAL IV PRN (11:13)
[2021-08-24 14:00] VITALS: BP 135/77
[2021-08-24 19:48] VITALS: BP 137/75
[2021-08-24] MEDS: oxyCODONE 5MG TAB PO PRN (21:17)
[2021-08-25 02:00] VITALS: BP 122/74
[2021-08-25] MEDS: LevoFLOXacin 750 MG TABLET PO SCH (05:42)
[2021-08-25 05:44] VITALS: BP 124/75
[2021-08-25] MEDS ORDERED: LEVEMIR (INSULIN DETEMIR) 1 UNITS/0.01ML SC ONE (08:00)
[2021-08-25 08:23] VITALS: BP 124/75
[2021-08-25] MEDS: busPIRone 5 MG TAB PO SCH (08:23)
[2021-08-25] MEDS: ATORVASTATIN 20 MG TAB PO SCH (08:23)
[2021-08-25] MEDS: FLUoxetine 20MG CAP PO SCH (08:24)
[2021-08-25] MEDS: oxyCODONE 5MG TAB PO PRN (13:14)
[2021-08-25 14:00] VITALS: BP 114/63
[2021-08-25] MEDS ORDERED: LEVO750T13 PO (15:49)
[2021-08-25] MEDS ORDERED: OXYC-517 PO (15:49)
== END 2021-08-25 17:30 | disposition home health service (06) | DRG 364 ==
LOC: M MS5PR 14:58
PROVIDERS: ADMIT Surgery; ATTEND Surgery
PROC: 0JB90ZZ Excision of Buttock Subcutaneous Tissue and Fascia, Open Approach (ICD-10-PCS; 2021-08-20)
PROC: 0KBR0ZZ Excision of Left Upper Leg Muscle, Open Approach (ICD-10-PCS; principal; 2021-08-20 14:43)
DX: L02.31 Cutaneous abscess of buttock (principal); K61.1 Rectal abscess; E11.9 Type 2 diabetes mellitus without complications; L02.416 Cutaneous abscess of left lower limb; Z88.8 Allergy status to other drugs, medicaments and biological substances; Z79.899 Other long term (current) drug therapy; Z79.4 Long term (current) use of insulin; F41.9 Anxiety disorder, unspecified; F32.A Depression, unspecified; Z91.19 Patient's noncompliance with other medical treatment and regimen; Z91.14 Patient's other noncompliance with medication regimen

== ENCOUNTER 2022-01-20 14:48 | Emergency (ER) | payer OTHER ==
[~2022-01-20] VITALS: Ht 157.5 cm; Wt 65.1 kg
[~2022-01-20 14:48] MED LIST changes: +BACITAB PO; +IBUP1TAB5 PO; +LEVO1TAB40 PO; +OMEP-173 PO; +OXYC-517 PO
[2022-01-20] MEDS ORDERED: NS 500 ML IV ONE (17:20)
[2022-01-20 18:03] LABS: BLOOD UREA NITROGEN 18 MG/DL (9-23); CALCIUM LEVEL 8.8 MG/DL (8.5-10.1); CARBON DIOXIDE LEVEL 25 MMOL/L (20-31); CHLORIDE LEVEL 104 MMOL/L (98-107); CREATININE FOR GFR 0.65 MG/DL (0.55-1.30); GLOMERULAR FILTRATION RATE > 60.0 (>58); GLUCOSE, FASTING 286 MG/DL (60-100); POTASSIUM SERUM 4.5 MMOL/L (3.5-5.1); SODIUM LEVEL 136 MMOL/L (136-145)
[2022-01-20] MEDS ORDERED: ISOVUE-370 76% 100ML VIAL As Ordered ONE (18:27)
[2022-01-20 18:44] LABS: BASO # 0.1 10^3/uL (0.0-0.2); BASO % 0.8 % (0.0-1.0); EOS # 0.2 10^3/uL (0.0-0.5); HEMATOCRIT 40.8 % (36.0-47.0); HEMOGLOBIN 13.3 g/dl (12.0-15.5); LYMPH # 1.4 10^3/uL (1.5-5.0); LYMPH % 13.8 % (24.0-44.0); MEAN CORPUSCULAR HEMOGLOBIN 28.1 pg (27.0-33.0); MEAN CORPUSCULAR HGB CONC 32.6 g/dl (32.0-36.5); MEAN CORPUSCULAR VOLUME 86.3 fl (80.0-96.0); MONO % 9.8 % (2.0-8.0); NEUTROPHILS # 7.5 10^3/uL (1.5-8.5); PLATELET COUNT, AUTOMATED 367 10^3/uL (150-450); RED BLOOD COUNT 4.73 10^6/uL (4.00-5.40); WHITE BLOOD COUNT 10.3 10^3/uL (4.0-10.0)
[2022-01-20 20:30] LABS: RSV AMPLIFICATION POSITIVE (NEGATIVE)
[2022-01-20] MEDS ORDERED: AZITHROMYCIN 250MG TABLET PO ONE (20:30)
[2022-01-20] MEDS ORDERED: ZITH250T PO (20:30)
[2022-01-20] MEDS ORDERED: PRED20TA PO (20:30)
[2022-01-20] MEDS ORDERED: predniSONE 20 MG TAB PO ONE (20:30)
[2022-01-20 20:45] VITALS: BP 158/83
== END 2022-01-20 20:46 | disposition home or self-care (01) ==
LOC: M ED 14:48
DX: J06.9 Acute upper respiratory infection, unspecified (principal); B97.4 Respiratory syncytial virus as the cause of diseases classified elsewhere; R09.1 Pleurisy; R91.1 Solitary pulmonary nodule; G43.909 Migraine, unspecified, not intractable, without status migrainosus; K21.9 Gastro-esophageal reflux disease without esophagitis; Z79.891 Long term (current) use of opiate analgesic; Z79.899 Other long term (current) drug therapy
CPT/HCPCS: 71046; 71275; 80048; 83880; 85025; 87631; 93005; 96360; 96361; 99284; J7512

== ENCOUNTER → 2023-09-28 | Outpatient (CLI) | payer OTHER ==
[~2023-09-28] MED LIST changes: +ONDA-282 PO; -ONDA4TAB6 PO; +PRED20TA PO; +ZITH250T PO
[2023-09-28 15:29] LABS: BASO # 0.1 10^3/uL (0.0-0.2); BASO % 1.1 % (0.0-1.0); EOS # 0.2 10^3/uL (0.0-0.5); EOS % 2.3 % (0.0-3.0); HEMATOCRIT 47.2 % (36.0-47.0); HEMOGLOBIN 15.6 g/dl (12.0-15.5); LYMPH # 1.3 10^3/uL (1.5-5.0); MEAN CORPUSCULAR HEMOGLOBIN 29.1 pg (27.0-33.0); MEAN CORPUSCULAR HGB CONC 33.1 g/dl (32.0-36.5); MEAN CORPUSCULAR VOLUME 88.1 fl (80.0-96.0); MONO # 0.6 10^3/uL (0.0-0.8); MONO % 8.6 % (2.0-8.0); NEUTROPHILS # 4.8 10^3/uL (1.5-8.5); NEUTROPHILS % 68.2 % (36.0-66.0); PLATELET COUNT, AUTOMATED 338 10^3/uL (150-450); RED BLOOD COUNT 5.36 10^6/uL (4.00-5.40); WHITE BLOOD COUNT 7.1 10^3/uL (4.0-10.0)
[2023-09-28 15:35] LABS: ERYTHROCYTE SEDIMENTATION RATE 31 mm/hr (0-20)
[2023-09-28 15:59] LABS: CREATININE, URINE 52.6 MG/DL; MAU/CREAT RATIO 176.8 MCG/MG (0.0-30.0)
[2023-09-28 16:03] LABS: ALBUMIN 3.6 G/DL (3.2-5.2); ALKALINE PHOSPHATASE 62 U/L (46-116); ALT/SGPT 13 U/L (7.0-40); AST/SGOT < 8 U/L (<34); BILIRUBIN,TOTAL 0.4 MG/DL (0.3-1.2); BLOOD UREA NITROGEN 19 MG/DL (9-23); CALCIUM LEVEL 9.1 MG/DL (8.5-10.1); CARBON DIOXIDE LEVEL 26 MMOL/L (20-31); CHLORIDE LEVEL 103 MMOL/L (98-107); CHOLESTEROL LEVEL 356 MG/DL (<200); CHOLESTEROL RISK RATIO 8.74 (<5); CREATININE FOR GFR 0.61 MG/DL (0.55-1.30); GLOMERULAR FILTRATION RATE > 60.0 (>58); GLUCOSE, FASTING 270 MG/DL (60-100); HDL CHOLESTEROL 40.7 MG/DL (>40); NON-HDL-C 315.3 MG/DL; POTASSIUM SERUM 4.6 MMOL/L (3.5-5.1); SODIUM LEVEL 135 MMOL/L (136-145); TOTAL PROTEIN 7.4 G/DL (5.7-8.2); TRIGLYCERIDES LEVEL 697 MG/DL (<150)
[2023-09-28 16:08] LABS: RHEUMATOID FACTOR QUANT 11.5 IU/ML (<14)
[2023-09-28 16:09] LABS: TOTAL 25(OH) VITAMIN D 12.2 NG/ML (20.0-100.0)
[2023-09-30 14:16] LABS: ANA SCREEN, IFA NEGATIVE (NEGATIVE)
[2023-10-01 01:17] LABS: CYCLIC CITRULLINATED PEPTIDE < 16 UNITS (<20)
== END ==
LOC: M PLALAB 12:06
PROVIDERS: ATTEND Nurse Practitioner Family
DX: M13.0 Polyarthritis, unspecified (principal); E78.2 Mixed hyperlipidemia; E55.9 Vitamin D deficiency, unspecified; E11.9 Type 2 diabetes mellitus without complications

== ENCOUNTER 2023-11-24 17:56 | Emergency (ER) | payer OTHER ==
[2023-11-24] MEDS ORDERED: MECL-86 PO (18:21)
[2023-11-24 19:00] LABS: BASO # 0.1 10^3/uL (0.0-0.2); BASO % 0.5 % (0.0-1.0); EOS # 0.1 10^3/uL (0.0-0.5); EOS % 0.6 % (0.0-3.0); HEMATOCRIT 40.2 % (36.0-47.0); HEMOGLOBIN 13.8 g/dl (12.0-15.5); LYMPH # 0.9 10^3/uL (1.5-5.0); LYMPH % 7.7 % (24.0-44.0); MEAN CORPUSCULAR HEMOGLOBIN 29.6 pg (27.0-33.0); MEAN CORPUSCULAR HGB CONC 34.3 g/dl (32.0-36.5); MEAN CORPUSCULAR VOLUME 86.1 fl (80.0-96.0); MONO # 0.8 10^3/uL (0.0-0.8); MONO % 6.9 % (2.0-8.0); NEUTROPHILS # 9.3 10^3/uL (1.5-8.5); NEUTROPHILS % 83.8 % (36.0-66.0); PLATELET COUNT, AUTOMATED 300 10^3/uL (150-450); RED BLOOD COUNT 4.67 10^6/uL (4.00-5.40); WHITE BLOOD COUNT 11.1 10^3/uL (4.0-10.0)
[2023-11-24 19:19] LABS: ALBUMIN 2.9 G/DL (3.2-5.2); ALKALINE PHOSPHATASE 53 U/L (46-116); ALT/SGPT 11 U/L (7.0-40); AST/SGOT < 8 U/L (<34); BILIRUBIN,TOTAL 0.5 MG/DL (0.3-1.2); BLOOD UREA NITROGEN 13 MG/DL (9-23); CALCIUM LEVEL 8.3 MG/DL (8.5-10.1); CARBON DIOXIDE LEVEL 25 MMOL/L (20-31); CHLORIDE LEVEL 109 MMOL/L (98-107); GLOMERULAR FILTRATION RATE > 60.0 (>58); GLUCOSE, FASTING 184 MG/DL (60-100); POTASSIUM SERUM 3.8 MMOL/L (3.5-5.1); SODIUM LEVEL 140 MMOL/L (136-145); TOTAL PROTEIN 6.2 G/DL (5.7-8.2)
[2023-11-24] MEDS: MECLIZINE 25 MG TABLET PO ONE (20:43)
[2023-11-24 22:30] VITALS: BP 127/64; TEMP 98.2; O2SAT 97
[2023-11-24] MEDS ORDERED: MECL-209 PO (22:31)
== END 2023-11-24 22:45 | disposition home or self-care (01) ==
LOC: EDBD 17:56 → M ED 17:56
DX: H81.4 Vertigo of central origin (principal); E11.9 Type 2 diabetes mellitus without complications; F32.A Depression, unspecified; G43.909 Migraine, unspecified, not intractable, without status migrainosus; F41.9 Anxiety disorder, unspecified; Z88.8 Allergy status to other drugs, medicaments and biological substances; Z79.84 Long term (current) use of oral hypoglycemic drugs; Z79.2 Long term (current) use of antibiotics; Z79.52 Long term (current) use of systemic steroids; Z79.899 Other long term (current) drug therapy

== ENCOUNTER → 2024-01-25 | Outpatient (CLI) | payer OTHER ==
[~2024-01-25] MED LIST changes: +MECL-209 PO
[2024-01-25 12:59] LABS: BASO # 0.1 10^3/uL (0.0-0.2); BASO % 0.8 % (0.0-1.0); EOS # 0.2 10^3/uL (0.0-0.5); EOS % 2.1 % (0.0-3.0); HEMATOCRIT 43.1 % (36.0-47.0); HEMOGLOBIN 14.4 g/dl (12.0-15.5); LYMPH # 1.5 10^3/uL (1.5-5.0); LYMPH % 17.9 % (24.0-44.0); MEAN CORPUSCULAR HEMOGLOBIN 28.6 pg (27.0-33.0); MEAN CORPUSCULAR HGB CONC 33.4 g/dl (32.0-36.5); MEAN CORPUSCULAR VOLUME 85.7 fl (80.0-96.0); MONO # 0.9 10^3/uL (0.0-0.8); MONO % 10.6 % (2.0-8.0); NEUTROPHILS # 5.8 10^3/uL (1.5-8.5); NEUTROPHILS % 68.2 % (36.0-66.0); PLATELET COUNT, AUTOMATED 341 10^3/uL (150-450); RED BLOOD COUNT 5.03 10^6/uL (4.00-5.40); WHITE BLOOD COUNT 8.5 10^3/uL (4.0-10.0)
[2024-01-25 13:20] LABS: ALBUMIN 3.3 G/DL (3.2-5.2); ALKALINE PHOSPHATASE 57 U/L (35-104); ALT/SGPT 11 U/L (7.0-40); AST/SGOT < 8 U/L (<34); BILIRUBIN,TOTAL 0.3 MG/DL (0.3-1.2); BLOOD UREA NITROGEN 18 MG/DL (9-23); CALCIUM LEVEL 8.9 MG/DL (8.5-10.1); CARBON DIOXIDE LEVEL 29 MMOL/L (20-31); CHLORIDE LEVEL 105 MMOL/L (98-107); CHOLESTEROL LEVEL 245 MG/DL (<200); CHOLESTEROL RISK RATIO 7.06 (<5); CREATININE FOR GFR 0.63 MG/DL (0.55-1.30); GLOMERULAR FILTRATION RATE > 60.0 (>58); GLUCOSE, FASTING 155 MG/DL (60-100); HDL CHOLESTEROL 34.7 MG/DL (>40); LDL CHOLESTEROL 166.5 MG/DL (<100); NON-HDL-C 210.3 MG/DL; POTASSIUM SERUM 4.6 MMOL/L (3.5-5.1); SODIUM LEVEL 141 MMOL/L (136-145); TRIGLYCERIDES LEVEL 219 MG/DL (<150)
[2024-01-25 13:22] LABS: CREATININE, URINE 84.6 MG/DL
[2024-01-25 13:46] LABS: HEMOGLOBIN A1c 8.2 % (4.0-6.0)
== END ==
LOC: M PLALAB 11:10
PROVIDERS: ATTEND Nurse Practitioner Family
DX: E11.9 Type 2 diabetes mellitus without complications (principal); E78.2 Mixed hyperlipidemia; E55.9 Vitamin D deficiency, unspecified